=== PATIENT | female | born 1955 | race Caucasian/White ===

== ENCOUNTER → 2021-12-02 | Outpatient (CLI) | payer MEDICARE, OTHER ==
[2021-12-02 13:57] LABS: Basophils # (A) 0.04 X 10*3/uL (0.00-0.10); Basophils % (A) 0.9 %; Eosinophils # (A) 0.07 X 10*3/uL (0.04-0.35); Eosinophils % (A) 1.6 %; HCT 39.4 % (37.2-46.3); HGB 12.3 g/dL (12.0-15.0); Immature Grans, Automated 0.5 %; MCH 29.2 pg (27.0-32.0); MCHC 31.2 g/dL (32.0-37.0); MCV 93.6 fL (80.0-97.0); Mean Platelet Volume 10.5 fL (9.5-12.2); Monocytes # (A) 0.39 X 10*3/uL (0.20-1.00); Monocytes % (A) 9.1 %; NRBC Per 100 WBC 0 /100 WBCS (0.0-0.0); Neutrophils # (A) 2.27 X 10*3/uL (1.80-7.70); Neutrophils % (A) 52.9 %; Platelet Count 367 X 10*3/uL (140-440); RBC 4.21 X 10*6/uL (4.10-5.20); RDW 12.3 % (11.5-14.5); WBC 4.29 X 10*3/uL (4.50-10.00)
[2021-12-02 14:26] LABS: Immunoglobulin E 3.47 IU/mL (0.00-114.00)
[2021-12-02 14:56] LABS: ALT 28 U/L (8-44); AST 25 U/L (13-35); African American GFR (CKD) 105.2 (60.0-200.0); Albumin 4.3 g/dL (3.8-4.9); Albumin/Globulin Ratio 1.55 (1.60-3.17); Alkaline Phosphatase 95 U/L (41-126); Amylase 56 U/L (23-121); BUN/Creat Ratio 17.12 Ratio (12.00-20.00); Calcium 9.6 mg/dL (8.7-10.3); Chloride 104 mmol/L (96-109); Chol/HDL Ratio 2.77 Ratio; Globulin 2.8 g/dL (1.6-3.3); Glucose 94 mg/dL (70-110); Iron 69 ug/dL (50-170); LDL Cholesterol,Calculated 97.4 mg/dL (0.0-131.0); Non-African American GFR(CKD) 90.8 (60.0-200.0); Potassium 4.8 mmol/L (3.5-5.5); Sodium 142 mmol/L (135-145); Total Iron Binding Capacity 287 ug/dL (228-460); Total Protein 7.1 g/dL (6.2-8.2); VLDL Calculation 11.26 mg/dL (5.00-40.00)
[2021-12-02 22:22] LABS: Appearance,Urine Clear (Clear); Bilirubin,Urine Negative (Negative); Blood,Urine Negative (Negative); Color,Urine Yellow (Yellow); Ketones,Urine Negative (Negative); Nitrite,Urine Negative (Negative); Specific Gravity,Urine 1.016 (1.001-1.030); Urobilinogen,Urine 0.2 (0.2,1.0)
[2021-12-02 23:14] LABS: Bacteria,Urine Trace /HPF (None Seen)
[2021-12-03 13:24] LABS: Clam IgE <0.10 kU/L; Codfish IgE <0.10 kU/L; Peanut IgE <0.10 kU/L; Scallop IgE <0.10 kU/L; Shrimp IgE <0.10 kU/L; Soybean IgE <0.10 kU/L; Walnut IgE (Food) <0.10 kU/L
[2021-12-03 14:02] LABS: Egg White IgE <0.10 kU/L
== END | disposition home or self-care (01) ==
LOC: LABWHC1 08:44
PROVIDERS: ATTEND Family Medicine
DX: Z00.00 Encounter for general adult medical examination without abnormal findings (principal); E55.9 Vitamin D deficiency, unspecified; E78.5 Hyperlipidemia, unspecified; K90.9 Intestinal malabsorption, unspecified; R53.81 Other malaise; R76.8 Other specified abnormal immunological findings in serum
CPT/HCPCS: 36415; 80053; 80061; 81001; 82009; 82150; 82306; 82607; 82728; 82746; 82785; 83540; 83550; 84439; 84443; 85025; 86003; 86038